=== PATIENT | female | born 1980 | race Hispanic/Latino ===

== ENCOUNTER 2018-11-18 09:02 | Outpatient (CLI) | payer OTHER ==
--- NOTE | 2018-11-18 13:11 | ULT ---
COMPLETE ULTRASOUND GREATER THAN 14 WEEKS: HISTORY: Anatomy. FINDINGS: Single viable intrauterine fetus noted in cephalic presentation. The placenta is posterior and low-l julius but without overt placenta previa. heart rate 146 b.p.m. Amniotic fluid is within normal limits. Cervical length is within normal limits. Visualized brain, 4-chamber heart, 3-vessel cord, stomach, bladder, kidneys, spine, and extremi ty regions are unremarkable as visualized. BIOMETRY: BPD 4.6 cm - 20 weeks 1 day Head circumference 17.4 cm - 20 weeks 0 days Abdominal circumference 14.6 cm - 20 weeks 0 days Femur length 3,2 cm - 19 weeks 6 days IMPRESSION: 1. Single viable intrauterine fetus at 20 weeks 0 days. 2. Estimated date of delivery 04/07/2019. 3. Estimated weight 318 gm. POS: [facility]
== END 2018-11-18 09:03 | disposition home or self-care (01) ==
LOC: BICULT 09:02
PROVIDERS: ATTEND Family Medicine
DX: O09.92 Supervision of high risk pregnancy, unspecified, second trimester (principal); Z3A.20 20 weeks gestation of pregnancy
CPT/HCPCS: 76805

== ENCOUNTER 2019-03-24 13:38 | Inpatient (IN) | payer OTHER ==
[2019-03-25] MEDS ORDERED: Ondansetron PF 4 MG/2 ML Vial IVP PRN ×3 (00:33→16:47)
[2019-03-25] MEDS ORDERED: hydrALAZINE 20 MG/ML VIAL SLOW IVP PRN ×2 (00:33→16:47)
[2019-03-25] MEDS ORDERED: Misoprostol 200 MCG TAB PR PRN (00:33)
[2019-03-25] MEDS ORDERED: Carboprost 250 MCG/ML AMP IM PRN (00:33)
[2019-03-25] MEDS ORDERED: Lidocaine 1% (PF) 30 ML VIAL SC PRN (00:33)
[2019-03-25] MEDS ORDERED: Promethazine HCl 25 MG/ML VIAL IM PRN ×3 (00:33→16:47)
[2019-03-25] MEDS ORDERED: Diphenoxylate HCl/Atropine Tablet PO PRN (00:33)
[2019-03-25] MEDS ORDERED: Butorphanol Tartrate 1 MG/ML VIAL SLOW IVP PRN (00:33)
[2019-03-25] MEDS ORDERED: HYDROcodone/Acetaminophen 5/325 mg Tablet PO PRN ×3 (00:33→16:47)
[2019-03-25] MEDS ORDERED: Ibuprofen 800 MG TAB PO PRN (00:33)
[2019-03-25] MEDS ORDERED: Methylergonovine 0.2 MG/ML VIAL IM PRN (00:33)
[2019-03-25] MEDS ORDERED: NS w/ Oxytocin 10 units 500 ML IV SCH ×2 (00:45)
[2019-03-25 00:58] VITALS: BMI 27.8
[2019-03-25 01:43] LABS: Hemoglobin 11.3 g/dL (12.0-16.0); Mean Corpuscular HGB CONC 35.2 g/dL (32.0-36.0); Mean Corpuscular Hemoglobin 31.3 pg (27.0-31.0); Mean Corpuscular Volume 88.9 fL (78.0-98.0); Platelet Count 231 thou/uL (130-400); White Blood Cell (WBC) Count 8.3 thou/uL (4.8-10.8)
[2019-03-25 01:54] LABS: Glucose 96 mg/dL (70-105)
[2019-03-25 02:18] LABS: HBSAg Index 0.19 S/CO (0-0.99); Hep B Surf Ag Non-Reactive S/CO (NonReactive)
[2019-03-25] MEDS: Misoprostol 100 MCG TAB PO SCH ×3 (02:21→18:21)
[2019-03-25] MEDS: Lactated Ringer's 1,000 ML IV SCH ×3 (02:21→13:54)
[2019-03-25 05:39] LABS: Syphilis Antibody Nonreactive (Nonreactive); Syphilis Antibody Index 0.05 S/CO (<1.00 Non-Reactive)
[2019-03-25] MEDS ORDERED: Fentanyl 4 mcg/Bup 0.1% Cadd 100 ML ONE (12:27)
[2019-03-25] MEDS ORDERED: Naloxone HCl 0.4 mg/ml Vial IVP PRN ×2 (13:11)
[2019-03-25] MEDS ORDERED: Lactated Ringer's 500 ML IV PRN (13:11)
[2019-03-25] MEDS ORDERED: diphenhydrAMINE 50 MG/ML VIAL IVP PRN (13:11)
[2019-03-25] MEDS ORDERED: Acetaminophen 325 MG TAB PO PRN (13:11)
[2019-03-25] MEDS ORDERED: EPHEDRINE 25 MG/5 ML SYRINGE SLOW IVP PRN (13:11)
[2019-03-25] MEDS ORDERED: Communication Order-Pharmacy FS SCH (13:15)
[2019-03-25] MEDS ORDERED: Fentanyl 4 mcg/Bupivacaine 0.1% Cassette 100 ML EPIDURAL SCH (13:15)
[2019-03-25] MEDS: NS / Oxytocin 40 units/1000ml 1,000 ML IV PRN ×2 (14:18→15:36)
--- NOTE | 2019-03-25 14:41 | DN ---
DATE OF PROCEDURE: 03/25/2019 TIME SEEN: 1415 hours. TYPE OF DELIVERY: Emergent delivery. DELIVERY TECHNIQUE: In brief, I was called to attend to room 2 as the baby was actively delivering with "the head out." Dr. Moore was en route. I arrived about 30 seconds after being called and found the baby's head and shoulders to already be out of the vagina with a loose body cord. I placed 2 clamps on the cord, but the baby delivered through that spontaneously. I then cut the cord in between the 2 clamps and the baby was handed off to the NICU team. Baby was vigorous at . There was no evidence of dystocia or delivery complication. Baby was vigorous at . Dr. Moore arrived approximately 3 minutes after I did. The placenta was still in situ before Dr. Moore's arrival. My EBL was approximately 100 mL before placental delivery. No complications were noted. I did not grossly see any lacerations, although this was left for final inspection after the placenta was to be delivered. I relieved myself out of the room after Dr. Moore's arrival. Again, I attended the delivery as it was in process in LDR2 without complication. Job ID: [id number]
[2019-03-25 15:03] LABS: Actual Bicarbonate (HCO3v) 21 mEq/L (22-28); Analyzer IN Cardio OR; Base Excess -4.8 mEq/L (-2.0 to +3.0); pH (Cord, venous) 7.33 (7.32-7.43)
[2019-03-25 15:04] LABS: Actual Bicarbonate (HCO3a) 21.9 mEq/L (22-28); Analyzer IN Cardio OR; Base Excess (BEa) -4.1 mEq/L (-2.0 to +3.0)
[2019-03-25] MEDS ORDERED: Lanolin Ointment 7 GM TUBE TOP PRN (16:47)
[2019-03-25] MEDS ORDERED: Milk Of Magnesia 30 ML UDCUP PO PRN (16:47)
[2019-03-25] MEDS ORDERED: NS / Oxytocin 40 units/1000ml 1,000 ML IV SCH (16:47)
[2019-03-25] MEDS ORDERED: diphenhydrAMINE 25 MG CAP PO PRN (16:47)
[2019-03-25] MEDS ORDERED: Benzocaine-Menthol 82.5 ML CAN TOP PRN (16:47)
[2019-03-25] MEDS ORDERED: Bisacodyl 10 MG SUPP PR PRN (16:47)
[2019-03-25] MEDS: Ferrous Sulfate 325 MG TAB PO SCH (18:21)
[2019-03-25] MEDS: Ibuprofen 800 MG TAB PO SCH (21:47)
[2019-03-25] MEDS: Docusate Calcium (SURFAK) 240 MG CAP PO SCH (21:48)
[2019-03-26] MEDS: Ibuprofen 800 MG TAB PO SCH ×3 (06:00→21:50)
[2019-03-26 06:42] LABS: Hemoglobin 11.3 g/dL (12.0-16.0); Mean Corpuscular HGB CONC 34.6 g/dL (32.0-36.0); Mean Corpuscular Hemoglobin 30.9 pg (27.0-31.0); Mean Corpuscular Volume 89.3 fL (78.0-98.0); Mean Platelet Volume 7.8 fL (7.4-10.4); Platelet Count 215 thou/uL (130-400); Red Blood Cell (RBC) Count 3.67 mill/uL (4.20-5.40); White Blood Cell (WBC) Count 10.1 thou/uL (4.8-10.8)
[2019-03-26] MEDS ORDERED: Adacel (T-DAP) 0.5 ML SYRINGE IM ONE (09:00)
[2019-03-26] MEDS: Docusate Calcium (SURFAK) 240 MG CAP PO SCH ×2 (10:20→21:50)
[2019-03-26] MEDS: Prenatal Vitamin 1 TAB PO SCH (10:21)
[2019-03-26] MEDS: Ferrous Sulfate 325 MG TAB PO SCH ×2 (10:21→16:38)
[2019-03-27] MEDS: Ibuprofen 800 MG TAB PO SCH ×2 (05:53→14:21)
[2019-03-27 08:26] VITALS: BP 127/84; TEMP 97.8
[2019-03-27] MEDS: Ferrous Sulfate 325 MG TAB PO SCH (09:28)
[2019-03-27] MEDS: Docusate Calcium (SURFAK) 240 MG CAP PO SCH (09:28)
[2019-03-27] MEDS: Prenatal Vitamin 1 TAB PO SCH (09:28)
== END 2019-03-27 18:50 | disposition home or self-care (01) | DRG 807 ==
LOC: L&D 03-25 00:01 → 3SE 03-25 18:21
PROVIDERS: ADMIT Family Medicine; ATTEND Family Medicine
PROC: 10E0XZZ Delivery of Products of Conception, External Approach (ICD-10-PCS; principal; 2019-03-25)
PROC: 10907ZC Drainage of Amniotic Fluid, Therapeutic from Products of Conception, Via Natural or Artificial Opening (ICD-10-PCS; 2019-03-25)
DX: O24.92 Unspecified diabetes mellitus in childbirth (principal); Z37.0 Single live birth; Z3A.38 38 weeks gestation of pregnancy; O09.529 Supervision of elderly multigravida, unspecified trimester; O70.0 First degree perineal laceration during delivery
CPT/HCPCS: 36415; 36416; 82805; 82947; 85027; 86780; 86850; 86900; 86901; 87340; 88307; J2590